=== PATIENT | female | born 1935 | race Caucasian/White ===

== ENCOUNTER 2019-06-20 07:20 | Inpatient (IN) ==
[2019-06-20] MEDS ORDERED: ZOFRAN IV ONE (07:42)
[2019-06-20] MEDS ORDERED: PROTONIX 80 MG in NS 80 ML IV ONE (07:42)
[2019-06-20] MEDS ORDERED: MORPHINE IV ONE (07:42)
[2019-06-20] MEDS ORDERED: NS 1,000 ML IV ONE ×2 (07:42→10:15)
--- NOTE | 2019-06-20 08:02 | Diag Imaging Result Doc PS360 ---
EXAM: CHEST-PORTABLE HISTORY: weakness TECHNIQUE: Single view COMPARISON: 12/28/2018 FINDINGS: The lungs are hyperexpanded. The heart is not enlarged. The vessels are small. There are no infiltrates. No effusion identified. IMPRESSION: Emphysema Electronically signed by Naresh Patel 06/20/2019 8:00 AM
[2019-06-20 08:11] LABS: BASO# 0.02 X1000 (0.0-0.2); BASO% 0.2 % (0.0-0.8); EOS% 3.3 % (0.0-10.0); HEMATOCRIT 31.3 % (37.0-47.0); HEMOGLOBIN 9.8 g/dL (12.0-16.0); IMM GRAN# 0.03 X1000 (0.0-0.04); IMM GRAN% 0.3 % (0.0-0.5); LYMPH# 2.44 X1000 (1.2-3.4); LYMPH% 26.6 % (20.5-51.1); MCHC 31.3 g/dL (33-37); MCV 92.6 FL (81-99); MONO# 0.52 X1000 (0.11-0.59); MONO% 5.7 % (1.7-9.3); MPV 10.5 FL (7.4-10.4); NEUT# 5.86 X1000 (1.4-6.5); NEUT% 63.9 % (42.2-75.2); PLT 359 X1000 (130-400); RBC 3.38 XMIL (4.2-5.4); WBC 9.17 X1000 (4.8-10.8)
[2019-06-20 08:18] LABS: ALB/GLOB RATIO 1.4; ALBUMIN 3.5 g/dL (3.5-5.0); CALCIUM 9.4 mg/dL (8.8-10.2); CREATININE 0.9 mg/dL (0.5-0.9); POTASSIUM 5.2 mmol/L (3.5-5.1); TOTAL BILIRUBIN 0.19 mg/dL (0.20-1.00)
[2019-06-20 08:22] LABS: INR 1.05; PROTIME 13.8 Seconds (11.0-16.0); PTT 22.2 Seconds (22.3-41.8)
--- NOTE | 2019-06-20 08:46 | EKG Report ---
Test Performed on : 06/20/2019 08:17:57 AM Test Reason : weakness Blood Pressure : / mmHG Vent. Rate : 086 BPM Atrial Rate : 086 BPM P-R Int : 160 ms QRS Dur : 078 ms QT Int : 376 ms P-R-T Axes : 053 005 051 degrees QTc Int : 449 ms Normal sinus rhythm. Cannot rule out Inferior infarct , age undetermined Abnormal ECG When compared with ECG of 29-APR-2017 09:57, premature ventricular complexes. are no longer present Unconfirmed Result
--- NOTE | 2019-06-20 09:40 | Diag Imaging Result Doc PS360 ---
EXAM: CT ABD/PELVIS W/IV CONT ONLY INDICATION: colitis TECHNIQUE: This exam was performed using automated exposure control, adjustment of mA or kV according to patient size, and/or use of iterative reconstruction technique. COMPARISON: Bony pelvis CT dated 04/29/2017 FINDINGS: There is mild subsegmental atelectasis and/or scarring at the lung bases. There is a calcified stone in the gallbladder lumen at the fundus. No pericholecystic inflammatory changes appreciated. The liver, spleen, pancreas, and adrenal glands are unremarkable. There is a small right renal cyst with no peripheral enhancement. The kidneys are unremarkable, otherwise. Much of the bladder is obscured by extensive beam hardening artifact related to bilateral hip arthroplasty. The limited visualized portion is unremarkable. There is advanced diverticulosis coli. There is no evidence of diverticulitis. Note that a short segment of the distal sigmoid colon is partially obscured by metallic beam hardening artifact. There is no colonic wall thickening to indicate colitis. There is no evidence of appendicitis. There is a small duodenal diverticulum noted incidentally. The remainder of the GI tract is unremarkable. There is no evidence of bowel obstruction. No focal inflammatory changes, free abdominal gas, or free fluid is identified. There is fairly extensive aortoiliac atherosclerotic calcification but no evidence of aortic aneurysm. There is anterolisthesis of L4 on L5 and there has been a prior laminectomy at this level. There are multilevel degenerative changes. There is no evidence of acute osseous abnormality. IMPRESSION: 1.Advanced diverticulosis coli but no evidence of diverticulitis. 2.Other incidental/nonacute findings detailed above. No definite acute pathology by CT. Electronically signed by Oren Langford 06/20/2019 9:37 AM
--- NOTE | 2019-06-20 09:57 | PROVIDER DOCUMENTATION ---
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) Allergies/Adverse Reactions: Patient Allergies Allergy/AdvReac Type Severity Reaction Status Date / Time No Known Allergies Allergy Verified 05/08/19 14:02 Home Medications: Home Medication List Medication Instructions Recorded Confirmed Last Taken Type Esomeprazole [Nexium] 40 mg PO QAM 08/22/14 06/20/19 04/28/17 08:00 History Fluticasone/Salmet 100/50 INH 1 puff INH RTBID 08/22/14 06/20/19 04/28/17 08:00 History [Advair 100/50 Diskus] Ipratropium/Albuterol INH 2 inhaler INH BID 08/22/14 06/20/19 04/28/17 08:00 History [Combivent Respimat Inhaler] Losartan Potassium 100 mg PO QAM 08/22/14 06/20/19 04/28/17 08:00 History Vit B12/Pyridoxine/Thiamine [Pv 1 each SL DAILY 08/22/14 06/20/19 04/27/17 History Neuro Roel Tablet] - History of Present Illness-ABD Nature of Presenting Problems: Patient is a poor historian, with dementia, however 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 Patient has had intermittent stomach cramps with rectal bleeding for about 1 week, much worse since last night. States repeatedly, "I'm just so sick." No fever/chills/nausea/vomiting. There has been some shortness of breath, but without chest pain. She has a history of hemorrhoidal bleeding, but never as much blood as last night. She is not on blood thinners, but does take alleve twice daily for arthritis. Abdominal Pain Onset Location: reports: generalized abdomen Pain Radiation: reports: no radiation Quality of Pain: reports: aching, cramping Severity in ED: reports: mild Onset/Duration: reports: gradual, 1 week ago (worse last night) Timing: reports: still present, constant, changing over time, getting worse Activities at Onset: reports: none Exposure to sick contacts?: No Modifying Factors: improves with: defecating. worse with: movement Associated Symptoms: reports: shortness of breath, weakness Last BM: this morning Dark Stools Present?: reports: bright red blood Rectal Bleeding: reports: bleeding without stool, blood mixed with stool Rectal Pain: reports: none Emesis Description: reports: none Bruising or Bleeding Gums?: No Similar Symptoms Previously?: No Recently seen or treated by another doctor?: No Review of Systems - Adult - REVIEW OF SYSTEMS - ADULT Constitutional: reports: no symptoms reported Eyes: reports: no symptoms reported Ears, Nose, Mouth & Throat: reports: no symptoms reported Cardiovascular: reports: no symptoms reported Respiratory: reports: no symptoms reported Gastrointestinal: reports: no symptoms reported Genitourinary: reports: no symptoms reported Musculoskeletal: reports: no symptoms reported Integumentary: reports: no symptoms reported Neurological: reports: no symptoms reported Psychiatric: reports: no symptoms reported Endocrine: reports: no symptoms reported Hematologic/Lymphatic: reports: no symptoms reported Allergic/Immunologic: reports: no symptoms reported All Other Systems: Reviewed and Negative Past History - Adult - PAST MEDICAL HISTORY-ADULT Review of Records: reports: Old Records Reviewed, Nursing Assessment Review, Med ications Reviewed, Social history reviewed & non-contributory. Major Childhood Illnesses: reports: denies history Cardiovascular: reports: HTN Respiratory: reports: asthma, COPD Gastrointestinal: reports: GERD Obstetrical/Gynecological: reports: denies history Genitourinary: reports: kidney disease Musculoskeletal: reports: denies history Neurological: reports: denies history Psychiatric: reports: denies history Endocrine/Immune: reports: denies history Other Conditions: reports: denies history - PRIOR SURGERIES/PROCEDURES Surgical/Procedure History: reports: appendectomy, hysterectomy, tonsillectomy, joint replacement (hip) - IMMUNIZATION STATUS Childhood Immunizations: See Nurse Assessment Flu Vaccine: See Nurse Assessment - FAMILY HISTORY Family History: reviewed, not pertinent - SOCIAL HISTORY Smoking: non-smoker Substance Use: none/never Alcohol Use Frequency: rarely Living Situation: alone Physical Exam-General - PHYSICAL EXAM-ADULT Initial Vital Signs Reviewed: Yes (Hypotensive, not tachycardic or febrile initially) - CONSTITUTIONAL General Appearance: alert, mild distress, other (groaning and moaning) - EYES Eyes: PERRL/EOMI, pale conjunctivae - HEAD, EARS, NOSE, MOUTH & THROAT HENMT: normocephalic/atraumatic, normal ENT inspection, pharynx normal, other (dry mucous membranes). negative: moist mucous membranes - NECK Neck: full range of motion, supple, normal inspection - RESPIRATORY Respiratory: chest non-tender, lungs clear, normal breath sounds, no pleuratic chest pain, no respiratory distress, no accessory muscle use, respiratory distress - CARDIOVASCULAR Cardiovascular: normal peripheral pulses, regular rate, rhythm, no edema, no gallop, no JVD, no murmur - GASTROINTESTINAL (ABDOMEN) Abdominal Exam: non tender, soft, no organomegaly, no pulsatile mass, abnormal bowel sounds (hyperactice) - GENITOURINARY Rectal Exam: normal rectal tone, hemorrhoids (slight, non-bleeding), other (dark red blood on exam) Hemoccult Exam: heme positive stool - LYMPHATIC Lymphatic: no adenopathy - MUSCULOSKELETAL Back Exam: normal inspection, no vertebral tenderness. 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 negative: oriented x 3 (orient x 2) Progress - PLAN OF CARE/RESULTS Progress/Plan/Lab Results: Vital Signs - 8 hr 06/20/19 07:25 06/20/19 07:43 06/20/19 09:14 Temperature 98.1 F Pulse Rate 89 88 98 H Respiratory Rate 20 17 18 Blood Pressure 75/44 127/55 141/89 O2 Sat by Pulse Oximetry 95 94 L 94 L 06/20/19 08:06 Stool Occult Blood (KRIS) - Final Stool Laboratory Results - last 24 hr 06/20/19 06/20/19 06/20/19 07:39 07:39 07:39 WBC 9.17 RBC 3.38 L Hgb 9.8 L Hct 31.3 L MCV 92.6 MCH 29.0 MCHC 31.3 L RDW Std Deviation 13.0 Plt Count 359 MPV 10.5 H Immature Gran % (Auto) 0.3 Neut % (Auto) 63.9 Lymph % (Auto) 26.6 Garrett % (Auto) 5.7 Eos % (Auto) 3.3 Baso % (Auto) 0.2 Immature Gran # (Auto) 0.03 Neut # (Auto) 5.86 Lymph # (Auto) 2.44 Garrett # (Auto) 0.52 Eos # (Auto) 0.30 Baso # (Auto) 0.02 PT 13.8 INR 1.05 PTT (Actin FS) 22.2 L Sodium 140 Potassium 5.2 H Chloride 106 Carbon Dioxide 22 L Anion Gap 12 BUN 18 Creatinine 0.9 Estimated GFR/1.73 m2 60 BUN/Creatinine Ratio 20 Glucose 152 H Calculated Osmolality 284 Calcium 9.4 Total Bilirubin 0.19 L AST 21 ALT 11 Alkaline Phosphatase 99 Troponin T High Sens Wbj-E-Imvplkpezjr Pept Total Protein 6.0 L Albumin 3.5 Globulin 2.5 Albumin/Globulin Ratio 1.4 Plasma Lactate Blood Type Antibody Screen 06/20/19 06/20/19 06/20/19 07:39 07:39 07:39 WBC RBC Hgb Hct MCV MCH MCHC RDW Std Deviation Plt Count MPV Immature Gran % (Auto) Neut % (Auto) Lymph % (Auto) Garrett % (Auto) Eos % (Auto) Baso % (Auto) Immature Gran # (Auto) Neut # (Auto) Lymph # (Auto) Garrett # (Auto) Eos # (Auto) Baso # (Auto) PT INR PTT (Actin FS) Sodium Potassium Chloride Carbon Dioxide Anion Gap BUN Creatinine Estimated GFR/1.73 m2 BUN/Creatinine Ratio Glucose Calculated Osmolality Calcium Total Bilirubin AST ALT Alkaline Phosphatase Troponin T High Sens Gzp-O-Cfokrexzsvl Pept 490 H Total Protein Albumin Globulin Albumin/Globulin Ratio Plasma Lactate 2.6 H Blood Type B POSITIVE Antibody Screen NEGATIVE 06/20/19 07:39 WBC RBC Hgb Hct MCV MCH MCHC RDW Std Deviation Plt Count MPV Immature Gran % (Auto) Neut % (Auto) Lymph % (Auto) Garrett % (Auto) Eos % (Auto) Baso % (Auto) Immature Gran # (Auto) Neut # (Auto) Lymph # (Auto) Garrett # (Auto) Eos # (Auto) Baso # (Auto) PT INR PTT (Actin FS) Sodium Potassium Chloride Carbon Dioxide Anion Gap BUN Creatinine Estimated GFR/1.73 m2 BUN/Creatinine Ratio Glucose Calculated Osmolality Calcium Total Bilirubin AST ALT Alkaline Phosphatase Troponin T High Sens 22 H Ans-A-Utxvfbrflvi Pept Total Protein Albumin Globulin Albumin/Globulin Ratio Plasma Lactate Blood Type Antibody Screen Orders Category Date Time Status Nursing- Obtain EKG once Care 06/20/19 07:42 Active CHEST-PORTABLE [RAD] Stat Exams 06/20/19 07:[address] ABD/PELVIS W/IV CONT ONLY [CT] Stat Exams 06/20/19 07:41 Completed BLOOD CULTURE [BLDCUL] Stat Lab 06/20/19 08:24 Results CBC WITH ELECTRONIC DIFF [HEME] Stat Lab 06/20/19 07:39 Completed COMPREHENSIVE METABOLIC PANEL [CHEM] Stat Lab 06/20/19 07:39 Completed LACTATE, PLASMA [CHEM] Stat Lab 06/20/19 07:39 Completed OCCULT BLOOD SCREENING [STOOL] Stat Lab 06/20/19 08:06 Completed PRO B-NATRIURETIC PEPTIDE Stat Lab 06/20/19 07:39 Completed PROTIME WITH INR [COAG] Stat Lab 06/20/19 07:39 Completed PTT [COAG] Stat Lab 06/20/19 07:39 Completed TROPONIN T HIGH SENSITIVITY Stat Lab 06/20/19 07:39 Completed TYPE & SCREEN [BBK] Stat Lab 06/20/19 07:39 Completed 0.9% Sodium Chloride Inj [Ns] 1,000 ml Med 06/20/19 07:42 Discontinued IV 999 mls/hr Morphine Med 06/20/19 07:42 Discontinued 2 mg IV NOW ONE Ondansetron [Zofran] Med 06/20/19 07:42 Discontinued 4 mg IV NOW ONE Pantoprazole [Protonix] 80 mg Med 06/20/19 07:42 Discontinued 0.9% Sodium Chloride Inj [Ns] 80 ml IV NOW GI Bleed (possible) Stat Oth 06/20/19 07:40 Ordered EKG [EKG] Stat Ther 06/20/19 07:42 Draft Result Diagrams: 06/20/19 07:39 06/20/19 07:39 - REASSESSMENT Reassessment #1 Time Reassessed: 10:14 Status: improving (Patient has only 1 SIRS criteria, so does not meet criteria for sepsis despite slightly elevated lactate. Patient likely has diverticuar bleeding. Will cover with zosyn and admit for serial hgb/hct and further jennifer luation.) - EKG 1 Time of EKG reading by physician:: 08:17 EKG Read and Signed by:: Medardo Sandy EKG Interpretation (*Must complete 3 of following elements*): Abnormal Rate: 86 Rhythm: NSR [place]: normal QRS: other (low voltage, early transition) FL Interval: normal ST Wave: non-specific ST changes Comments: artifact present - XRAY 1 XRAY Study: Chest Impression: Abnormal, See EMR Report ( EXAM: CHEST-PORTABLE HISTORY: weakness TECHNIQUE: Single view COMPARISON: 12/28/2018 FINDINGS: The lungs are hyperexpanded. The heart is not enlarged. The vessels are small. There are no infiltrates. No effusion identified. IMPRESSION: Emphysema Electronically signed by Naresh Patel 06/20/2019 8:00 AM 06/20/19799 Interpreting Physician: Naresh Patel MD Dictated Date/Time: 06/20/19799 cc: Meadrdo Sandy MD; Lavon Haines) - CT/MRI 1 CT Study: Abdomen Impression: Abnormal, See EMR Report (Signed EXAM: CT ABD/PELVIS W/IV CONT ONLY INDICATION: colitis TECHNIQUE: This exam was performed using automated exposure control, adjustment of mA or kV according to patient size, and/or use of iterative reconstruction technique. COMPARISON: Bony pelvis CT dated 04/29/2017 FINDINGS: There is mild subsegmental atelectasis and/or scarring at the lung bases. There is a calcified stone in the gallbladder lumen at the fundus. No pericholecystic inflammatory changes appreciated. The liver, spleen, pancreas, and adrenal glands are unremarkable. There is a small right renal cyst with no peripheral enhancement. The kidneys are unremarkable, otherwise. Much of the bladder is obscured by extensive beam hardening artifact related to bilateral hip arthroplasty. The limited visualized portion is unremarkable. There is advanced diverticulosis coli. There is no evidence of diverticulitis. Note that a short segment of the distal sigmoid colon is partially obscured by metallic beam hardening artifact. There is no colonic wall thickening to indicate colitis. There is no evidence of appendicitis. There is a small duodenal diverticulum noted incidentally. The remainder of the GI tract is unremarkable. There is no evidence of bowel obstruction. No focal inflammatory changes, free abdominal gas, or free fluid is identified. There is fairly extensive aortoiliac atherosclerotic calcification but no evidence of aortic aneurysm. There is anterolisthesis of L4 on L5 and there has been a prior laminectomy at this level. There are multilevel degenerative changes. There is no evidence of acute osseous abnormality. IMPRESSION: 1.Advanced diverticulosis coli but no evidence of diverticulitis. 2.Other incidental/nonacute findings detailed above. No definite acute pathology by CT. Electronically signed by Oren Langford 06/20/2019 9:37 AM 06/20/1937 Interpreting Physician: Oren Langford MD Dictated Date/Time: 06/20/19928 cc: Medardo Sandy MD; Lavon Haines) - CONSULTS/PCP/HOSPITALIST Notification #1 *Consult/PCP/Hospitalist*: Hospitalist paged at [phone], 1030 Time Discussed: 10:32 (Ariadna GRAJEDA) Reason/Comments: she will consult GI Consult Disposition: Will see in ED, Admit Departure - Departure Date of Disposition Decision: 06/20/19 Time of Disposition Decision: 10:15 DIAGNOSIS: Transient hypotension, Diverticulosis of colon with hemorrhage Disposition: ADMITTED INPATIENT 09 Certified Medical Emergency: Emergent Condition: Fair Referrals and Follow-Ups: Lavon Haines [Primary Care Provider] - - Critical Care Note This patient required my direct & personal management of CC.: Yes Total Time (mins): 35 Critical Care Statement: This patient required my direct personal management to treat or rule out processes, the absence of which, could potentiallly result in sudden, clinically significant life or limb threatening deterioration. Attestation - Physician/ LAWRENCE Attestation Patient care was provided by Advanced Practice Provider:: No The physician spent face to face time with patient:: Yes Advanced Practice Provider documentation review:: Supervising physician onsite and consulted in the evaluation and care of this patient. The physician did have a face to face encounter with the patient.
[2019-06-20] MEDS ORDERED: ZOSYN 4.5 GM in NS 100 ML IV ONE (10:09)
[2019-06-20] MEDS ORDERED: SODIUM CHLORIDE 0.9% INJ ONE (11:33)
[2019-06-20] MEDS ORDERED: SODIUM CHLORIDE 0.9% INJ SCH ×2 (11:33→11:45)
[2019-06-20] MEDS ORDERED: ZOFRAN IV PRN (11:33)
[2019-06-20] MEDS ORDERED: MORPHINE IV PRN (11:33)
--- NOTE | 2019-06-20 12:25 | HISTORY AND PHYSICAL ---
PRIMARY CARE PROVIDER: Dr. Lavon Haines. [place]: Dr. Bernice Espinal. CHIEF COMPLAINT: Rectal bleeding, weakness, nausea. HISTORY OF PRESENT ILLNESS: Ms. Leonard is an 83-year-old female, who carries a past medical history of dementia. 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 GERD, COPD and asthma. She is on 2 types of inhalers. She does not know which she has been diagnosed with. Hypertension. She reported last Tuesday on her way to her physical therapy appointment from a broken pelvis bone that happened on , that she had a small episode of bright red blood per rectum. However, it resolved on its own. She made an appointment with Dr. Espinal that I believe she has an appointment next week, and then this a.m. around 3, she had 3 episodes of uncontrolled bright red blood per rectum with clots and no stool. She had 2 more copious episodes after that, and she was so weak that she could not get up by herself. She had to be taken out to the vehicle by wheelchair. She felt dizzy and nauseated. Upon arrival to the ED, her blood pressure was 70s over 40s. Hemoglobin and hematocrit surprisingly was 9 and 31. Workup just showed advanced diverticulosis coli, but no evidence of diverticulitis. She does report a history of some hemorrhoidal bleeding. She is not on any blood thinners. However, she does take Aleve twice daily for arthritis. After fluid volume resuscitation, her blood pressures came up. We will place her in the ICU for close monitoring with serial hemoglobin and hematocrits. She has been typed and screened. We will consult GI. REVIEW OF SYSTEMS: Twelve-point review of systems completely negative, except for those mentioned in HPI. She denies any headache, fever, chills, vomiting, cough, abdominal pain, dysuria, chest pain, shortness of breath. No dark tarry stools. PAST MEDICAL HISTORY: For HPI. PAST SURGICAL HISTORY: Appendectomy, hysterectomy, tonsillectomy, bilateral hip replacements x3, back surgery laminectomies, bladder tack x2. FAMILY HISTORY: Reviewed and not pertinent. SOCIAL HISTORY: She is a . She was never a smoker. No alcohol. No illicit drugs. She continues to work daily. 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 She lives alone and does have a sitter. She uses a walker currently secondary to a broken pelvis. PHYSICAL EXAMINATION: VITAL SIGNS: Temperature 98.1 degrees, heart rate 100, respirations 17, blood pressure 114/66, O2 is 95% on room air. GENERAL: Ms. Leonard is a pleasant 83-year-old female, who is sitting up in the bed in no acute distress. HEENT: Atraumatic, normocephalic. PERRL. NECK: Supple. Trachea midline. CARDIOVASCULAR: S1, S2 appreciated. Positive for murmur. GI: Soft, nontender, nondistended. Positive bowel sounds 4 quadrants. LOWER EXTREMITIES: Negative for edema. SKIN: Appears to be warm, dry, and intact. NEUROLOGIC: No focal deficits noted. DIAGNOSTIC DATA: Abdomen and pelvis CT: Advanced diverticulosis coli, but no evidence of diverticulitis. EKG: Normal sinus rhythm at 86 beats per minute. Chest x-ray: Emphysema. LABORATORY DATA: White count 9, hemoglobin and hematocrit 9 and 31, platelet count is 359. Chemistry: Sodium 140, potassium 5.2. BUN 18, creatinine 0.9 blood glucose is 152. ASSESSMENT AND PLAN: 1.Lower GI Bleed. Advanced diverticulosis coli with no evidence of diverticulitis on CT scan found. Hemorrhoidal bleed versus diverticular bleed. Hemoglobin and hematocrit is currently stable. We will continue to trend serial hemoglobin and hematocrits. She has been typed and screened. We will consult Gastroenterology. NPO ; continue intravenous fluids. She was initially hypotensive 70 over 40. We will watch her closely in the ICU. Continue proton pump inhibitor. 2. Chronic obstructive pulmonary disease, asthma. We will continue her home breathing treatments. 3. Gastroesophageal reflux disease. Continue proton pump inhibitor. 4. Hypotension secondary to acute blood loss anemia. Blood pressures came up after intravenous resuscitation. We will keep a close eye on her blood pressures in the intensive care unit. Transfuse as needed. 5. Dementia. Aware. 6. Further recommendation to follow physician evaluation, laboratory and diagnostic data. Dictated by TARAS Messer for Gabby Waite MD cc: MD Bernice Stone MD Alan Walker, MD [facility]ENTER[facility]orge
[2019-06-20] MEDS: NS 1,000 ML IV SCH (12:45)
[2019-06-20 16:19] LABS: HEMATOCRIT 27.7 % (37.0-47.0); HEMOGLOBIN 8.5 g/dL (12.0-16.0)
[2019-06-20] MEDS ORDERED: COMBIVENT RESPIMAT INHALER INH SCH (19:30)
[2019-06-20 19:55] LABS: HEMATOCRIT 26.1 % (37.0-47.0)
[2019-06-20] MEDS: ADVAIR 100/50 DISKUS INH SCH (19:57)
[2019-06-20] MEDS ORDERED: BENADRYL IV ONE (20:34)
[2019-06-20] MEDS: PROTONIX IV SCH (20:56)
[2019-06-20] MEDS ORDERED: PROTONIX IV ONE (21:00)
[2019-06-21 00:54] LABS: HEMATOCRIT 24.8 % (37.0-47.0); HEMOGLOBIN 7.9 g/dL (12.0-16.0)
[2019-06-21] MEDS: NS 1,000 ML IV SCH ×2 (02:33→17:02)
[2019-06-21 05:39] LABS: BASO# 0.01 X1000 (0.0-0.2); BASO% 0.2 % (0.0-0.8); EOS# 0.17 X1000 (0.0-0.7); EOS% 2.6 % (0.0-10.0); HEMATOCRIT 25.2 % (37.0-47.0); LYMPH# 1.78 X1000 (1.2-3.4); LYMPH% 27.1 % (20.5-51.1); MCH 29.6 PG (27-31); MCHC 31.7 g/dL (33-37); MCV 93.3 FL (81-99); MONO# 0.43 X1000 (0.11-0.59); MONO% 6.6 % (1.7-9.3); MPV 10.2 FL (7.4-10.4); NEUT# 4.17 X1000 (1.4-6.5); NEUT% 63.5 % (42.2-75.2); PLT 288 X1000 (130-400); RDW 13.2 % (11.5-14.5); WBC 6.56 X1000 (4.8-10.8)
[2019-06-21 05:51] LABS: AGAP 10; ALB/GLOB RATIO 1.3; ALKALINE PHOSPHATASE 77 U/L (32-104); BUN 12 mg/dL (8-22); CALCIUM 8.6 mg/dL (8.8-10.2); CHLORIDE 110 mmol/L (98-107); COSMO 283; CREATININE 0.8 mg/dL (0.5-0.9); ESTIMATED GFR > 60; GLUCOSE 100 mg/dL (70-104); GOT 14 U/L (10-30); GPT 9 U/L (10-36); MAGNESIUM 1.7 mg/dL (1.5-2.7); POTASSIUM 3.6 mmol/L (3.5-5.1); SODIUM 142 mmol/L (136-145); TCO2 22 mmol/L (25-35); TOTAL BILIRUBIN < 0.15 mg/dL (0.20-1.00); TOTAL PROTEIN 5.3 g/dL (6.3-8.3)
[2019-06-21] MEDS: DUONEB (A & A) INH SCH ×5 (06:48→21:18)
[2019-06-21] MEDS: ADVAIR 100/50 DISKUS INH SCH ×2 (07:56→21:18)
[2019-06-21] MEDS ORDERED: PEPCID IV SCH (09:00)
[2019-06-21] MEDS ORDERED: ALBUMIN 25% IV SCH (09:00)
[2019-06-21] MEDS: PROTONIX IV SCH ×2 (09:30→21:04)
[2019-06-21] MEDS ORDERED: GOLYTELY PO ONE ×2 (11:20→14:00)
[2019-06-21] MEDS ORDERED: MAGNESIUM SULFATE 2 GM/S.W.I. 2 GM/50 ML IVPB IV ONE (15:49)
--- NOTE | 2019-06-21 17:25 | PROGRESS NOTE ---
DATE: 06/21/2019 SUBJECTIVE: The patient is resting comfortably in bed. She states that she has not had any more bloody bowel movements since coming to the hospital. She denies having any abdominal pain, nausea or vomiting. OBJECTIVE: Vital Signs: Temperature 98.7 degrees blood pressure 139/71, heart rate 99, respirations 22, O2 saturation 94% on room air. General: This is a chronically ill-appearing elderly female, sitting up in bed in no acute distress. Heart: S1, S2 normal. Tachycardic. Lungs: Clear to auscultation bilaterally. Abdomen: Positive bowel sounds. Soft, nontender, nondistended. Extremities: No edema, no cyanosis. Neurologic: The patient is alert and oriented x3. LABS: Hemoglobin 8,hematocrit 25, platelets 288. Sodium 142, potassium 3.6, chloride 110, CO2 22. BUN 12, creatinine 0.8, glucose 100, magnesium 1.7. ASSESSMENT AND PLAN: 1. Rectal bleeding. This is likely diverticular in nature. The patient is scheduled to undergo a colonoscopy tomorrow. We will continue on intravenous Protonix. Gastroenterology is following. 2. Anemia of acute blood loss. Stable. Continue to monitor closely. 3. Hypomagnesemia. We will replace the patient's magnesium. 4. Deep vein thrombosis prophylaxis. Continue with sequential compression devices. cc: Gabby Waite MD
--- NOTE | 2019-06-21 17:44 | GASTROENTEROLOGY CONSULTATION ---
DATE: 06/21/2019 REASON FOR CONSULT: GI bleed. HISTORY OF PRESENT ILLNESS: Ms. Leonard is an 83-year-old female. She came in yesterday morning to [facility] with complains of noticing bright red blood and and blood clots when she went to the bathroom, she said that the blood was gushing out. The patient does have a history of mild dementia, GERD, COPD, asthma. She does have a slasher sawyer who takes care for her at all times. The patient mentioned that on she fell and broke her pelvic bone but they did not do any surgery. She goes for physical therapy. She mentioned that when she was on her way for physical therapy on Tuesday she noticed that she had these episodes of bright red blood gushing out. She had made an appointment with Dr. Espinal to see him next week, on Tuesday. The patient has mentioned that she has had more than 2 or 3 episodes of bright red blood coming out of her rectum with clots but no stools. She has been feeling weak, tired and felt dizzy, but no fever, chills or shortness of breath. She did feel nauseated but no vomiting. On admission her hemoglobin and hematocrit were 9.8 and 31.3; today it is 8.0 and 25.2. The patient did mention that she has a history of diverticulosis and hemorrhoids. She does take Aleve twice a day for her arthritis. The patient did have 3 bowel movements today, but she has not noticed any further bleeding episodes. PAST MEDICAL HISTORY: COPD, hypertension, GERD, asthma, dementia, arthritis, diverticulosis, hemorrhoids. PAST SURGICAL HISTORY: Appendectomy, hysterectomy, tonsillectomy, bilateral hip replacement x3, back surgery, laminectomies, and bladder tack x2. ALLERGIES: No known drug allergies. SOCIAL HISTORY: The patient is a . She has never smoked or had alcohol or illicit drug. She has 4 kids. 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 She lives alone and does have a sitter. She uses a walker to maneuver around because of a broken pelvic. FAMILY HISTORY: No significant GI malignancies. REVIEW OF SYSTEMS: As per HPI. Otherwise, 12 point review of systems is negative. HOME MEDICATIONS: Nexium 40 mg a.m., Advair 50/500 one puff inhaler twice a day, Combivent Respimat inhaler 2 inhalations twice a day, losartan potassium 100 mg p.o. daily, vitamin B12/pyridoxine/thiamine 1 tablet daily. PHYSICAL EXAMINATION: Vital Signs: Temperature 98.7 degrees, pulse 91, respirations 20, blood pressure 139/71, oxygen saturation 94% on room air. The patient's weight is 155 pounds. BMI is 24.3 kg/m2. General: She is alert, oriented x3, and in no acute distress. Answering questions appropriately. HEENT: Pale conjunctivae. No icterus. PERRL. Neck: Supple. Lungs: Mild wheezing in the anterior lobes. Cardiovascular: Patient is tachycardic. Abdomen: Soft, nontender, nondistended. Active bowel sounds heard in all 4 quadrants. Extremities: No clubbing. No cyanosis. No edema. Pedal pulses are 2+, present bilaterally. Neurologic: Alert and oriented x3. Nonfocal. Cranial nerves 2 through 12 grossly intact. LABS: WBCs are 6.56, RBC 2.70, hemoglobin 8.0, hematocrit 25.2, platelet count 288,000. Sodium 132, potassium 3.6, chloride 110, anion gap 10, BUN 12, creatinine 0.8, glucose 100, calcium 8.6, magnesium 1.7, total bilirubin less than 0.15, AST 14, ALT 9, alkaline phosphatase is 77, albumin is 3.0. IMAGING: Patient's abdomen and pelvis CT has shown advanced diverticulosis coli but no evidence of diverticulitis. Her chest x-ray has shown emphysema. IMPRESSIONS AND PLAN: 1. Rectal bleeding. 2. Colonic diverticulosis. 3. GERD. 4. COPD. 5. Asthma. 6. Arthritis and using NSAIDS twice daily 7. Anemia PLAN: Ms. Leonard is an 83-year-old female with a history of COPD, asthma, and GERD. GI has been consulted for rectal bleeding. The patient is currently receiving normal saline at 75 mL/h. She is on PPI twice a day. We plan to do a colonoscopy to find out the cause of her bleeding. We have discussed the risks, benefits, and alternatives of the procedure to the patient. Further plan of care will be based on the colonoscopy findings. This plan was discussed with Dr. Morillo. Please call us with any further questions or concerns. Dictated by TARAS Benitez for Brady Morillo MD cc: Brady Morillo MD I have seen and examined the patient myself and I agree with the above plan of care. Please call us with any questions or concerns.Follow up in clinic in 4-6 weeks. MTDD
[2019-06-22] MEDS ORDERED: ATIVAN IV ONE (02:13)
[2019-06-22] MEDS: DUONEB (A & A) INH SCH ×2 (03:43→08:06)
[2019-06-22 06:32] LABS: HEMATOCRIT 24.9 % (37.0-47.0); HEMOGLOBIN 7.7 g/dL (12.0-16.0); MCH 28.6 PG (27-31); MCHC 30.9 g/dL (33-37); MCV 92.6 FL (81-99); MPV 10.5 FL (7.4-10.4); RBC 2.69 XMIL (4.2-5.4); RDW 13.4 % (11.5-14.5); WBC 5.43 X1000 (4.8-10.8)
[2019-06-22] MEDS: NS 1,000 ML IV SCH (06:39)
[2019-06-22 06:54] LABS: AGAP 12; BUN 7 mg/dL (8-22); CALCIUM 8.5 mg/dL (8.8-10.2); CHLORIDE 106 mmol/L (98-107); COSMO 281; CREATININE 0.7 mg/dL (0.5-0.9); ESTIMATED GFR > 60; GLUCOSE 99 mg/dL (70-104); POTASSIUM 3.2 mmol/L (3.5-5.1); SODIUM 142 mmol/L (136-145); TCO2 24 mmol/L (25-35)
[2019-06-22 07:41] VITALS: BP 122/59
[2019-06-22] MEDS: ADVAIR 100/50 DISKUS INH SCH (08:06)
[2019-06-22] MEDS ORDERED: POTASSIUM CHLORIDE 60 MEQ in NS 500 ML IV ONE (08:30)
[2019-06-22] MEDS: PROTONIX IV SCH (08:30)
[2019-06-22] MEDS ORDERED: DIPRIVAN 1% ONE (09:35)
[2019-06-22] MEDS ORDERED: DECADRON ONE (09:38)
[2019-06-22] MEDS ORDERED: FENTANYL ONE (09:42)
[2019-06-22] MEDS ORDERED: MYLICON DROPS ONE (09:52)
--- NOTE | 2019-06-22 10:23 | ENDOSCOPY OPERATIVE NOTE ---
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 PROCEDURE PERFORMED: Colonoscopy, diagnostic MEDICATIONS: Per Anesthesia PREP TYPE: GoLytely
[2019-06-22] MEDS ORDERED: KLOR-CON PO ONE (12:53)
[2019-06-22] MEDS ORDERED: COLACE PO SCH (21:00)
--- NOTE | 2019-06-23 14:35 | DISCHARGE SUMMARY ---
ADMISSION DATE: 06/20/2019 DISCHARGE DATE: 06/22/2019 FINAL DISCHARGE DIAGNOSES: 1. Rectal bleeding secondary to a diverticular bleed. 2. Severe diverticulosis. 3. Anemia of acute blood loss. 4. Hypertension. 5. Chronic obstructive pulmonary disease. 6. Gastroesophageal reflux disease. CONSULTATIONS: GI consultation with Dr. Morillo. PROCEDURES: Colonoscopy performed on 06/22/2019, which revealed severe nonbleeding diverticulosis in the sigmoid colon. Small internal hemorrhoids. HOSPITAL COURSE: Ms. Leonard is an 83-year-old female with a history of hypertension, GERD and diverticulosis, who presented to the ER with a chief complaint of rectal bleeding. On admission, the patient was noted to have a hemoglobin of 9.8 and it dropped to 7.9. The patient was admitted to the hospitalist service. A CT of the abdomen and pelvis was done that revealed advanced diverticulosis. The patient was monitored in the ICU and GI was consulted. The patient was monitored closely and had no further GI bleeding. The patient underwent a colonoscopy on 06/22/2019, which confirmed that the patient had severe nonbleeding diverticulosis in the sigmoid colon. She also was noted to have diverticulosis involving the ascending and descending colon. The patient's hemoglobin and hematocrit remained stable and it was recommended by the welding robot operator that the patient adhere to a high-fiber diet and start taking Metamucil daily as well as MiraLAX as needed for constipation. At this time, the patient is medically stable for discharge home. DISCHARGE MEDICATIONS: 1. Metamucil 1 packet oral daily. 2. MiraLAX 17 gm oral daily p.r.n. constipation. 3. Nexium 40 mg p.o. every morning. 4. Advair 100/50 1 puff inhaled twice a day. 5. Combivent 2 puffs twice a day. 6. Losartan 100 mg oral every morning. 7. Nephro-Roel 1 tablet daily. DISCHARGE DIET: A high-fiber diet, low-sodium diet. ACTIVITY: As tolerated. FOLLOWUP INSTRUCTIONS: The patient will need to follow up with Dr. Morillo in 2 weeks. The patient will need to follow up with Dr. Lavon Haines in 1 to 2 weeks. cc: MD Gabby Almonte MD
== END 2019-06-22 15:30 | disposition home or self-care (01) | DRG 378 ==
LOC: ED 07:20 → EDIPHOLD 10:56 → ICU 14:24 → EDIPHOLD 15:22 → ICU 16:44
PROVIDERS: ATTEND Internal Medicine